=== PATIENT | male | born 2000 | race Two or more races ===

== ENCOUNTER → 2025-01-13 | Outpatient (CLI) | payer MEDICAID, SELFPAY ==
--- NOTE | 2025-01-13 11:00 | XR_ITS ---
Examination: Abdomen sonogram, complete Date and time of exam: January 13, 2025 1112 hours INDICATIONS: Right-sided abdominal pain beginning 4 months ago. Technique: Multiple real-time grayscale transabdominal sonographic images of the abdomen have been obtained. Findings: Suspicious for tiny gallstones Gallbladder wall 0.2 cm Common bile duct 0.3 cm Pancreatic head 1.8 cm Aorta not enlarged Liver 21.1 cm fatty infiltration Normal hepatopedal portal venous flow Patent IVC Right kidney 12.3 cm renal cortex 1.2 cm Left kidney 12.3 cm cortex 2.5 cm Spleen 11.8 cm IMPRESSION: Suspicious for cholelithiasis Moderate hepatomegaly
== END | disposition home or self-care (01) ==
DX: R16.0 Hepatomegaly, not elsewhere classified (principal)
CPT/HCPCS: 76700